=== PATIENT | female | born 1965 | race Caucasian/White ===

== ENCOUNTER 2017-03-25 10:45 | Emergency (ER) | payer BC ==
[~2017-03-25] VITALS: Ht 157.5 cm; Wt 89.0 kg
[2017-03-25 11:08] VITALS: Ht 157.5 cm; Wt 89.0 kg
[2017-03-25] MEDS ORDERED: LORAZEPAM 2 MG INJ IV ONE (11:30)
--- NOTE | 2017-03-25 12:23 | RADRPT ---
PROCEDURE: CT brain without contrast CLINICAL INDICATION: Headache, dizziness TECHNIQUE: CT of the brain without contrast was performed on a multidetector CT scanner, with multi planar reformats. One or more of the following dose reduction techniques were used: Automated expos ure control, adjustment in mA and / or kV according to patient size, use of iterative reconstructive technique. CTDIvol = 44 mGy; DLP = 630 mGy-cm. COMPARISON: None available FINDINGS: There are patient motion related artifacts mildly limiting evaluation. No acute intracranial hemorr elizabeth is identified. No extra-axial fluid collection is seen. There is no mass effect. No midline shift is identified. Ventricles and sulci are within normal limits for size and configuration. The density of the visualized brain is unremarkable. Visualized perry-white junctions are preserved. Calvarium and skull base are intact. Mastoid air cells and imaged paranasal sinuses grossly clear. IMPRESSION: Mildly limited evaluation due to motion, without acute intracranial pathology identified. RPTAT: VV .Gavino Gold MD, MD Date Time Electronically viewed and signed by .Gavino Gold MD, on 03/25/2017 12:23 .O/
[2017-03-25] MEDS ORDERED: ALPR0.5T PO (12:50)
[2017-03-25 12:56] VITALS: BP 121/92; PULSE 89; RESP 20
--- NOTE | 2017-03-25 12:56 | ERD ---
ER Documentation Chief Complaint Date/Time DATE: 03/25/17 TIME: 12:54 Chief Complaint emotionally upset due family issues, hyperventilating HPI This is a 51-year-old female who just received news that her boyfriend was found this morning. She was found in her car by her friends and coworkers emotionally upset crying and hyperventilating. Patient is complaining of tremors and numbness to her whole body. The patient is actively hyperventilating and very upset. She is also complaining of a diffuse dull headache. She is also had 2 episodes of nausea and vomiting. Patient states she has had the exact same presentation before in the past with excessive stress. She has no chest pain shortness of breath no focal neurological complaints. ROS All systems reviewed and are negative except as per history of present illness. Medications Home Meds Active Scripts Alprazolam* (Xanax*) 0.5 Mg Tab, 0.5 MG PO Q8H Y for ANXIETY, #20 TAB Prov:OSCAR CORLEY DO 03/25/17 PMhx/Soc History of Surgery: Yes ( and leg surgery) Anesthesia Reaction: No Hx Neurological Disorder: No Hx Respiratory Disorders: No Hx Cardiac Disorders: Yes (hypertension) Hx Psychiatric Problems: Yes (anxiety) Hx Miscellaneous Medical Probl: Yes (diabetes) Hx Alcohol Use: No Hx Substance Use: No Hx Tobacco Use: No Smoking Status: Never smoker FmHx Family History: No coronary disease Physical Exam Vitals Vital Signs Date Time Temp Pulse Resp B/P Pulse Ox O2 Delivery O2 Flow Rate FiO2 03/25/17 11:08 98.1 89 20 158/100 99 Physical Exam Const: Well-developed, well-nourished Head: Atraumatic, normocephalic Eyes: Normal Conjunctiva, PERRLA, EOMI, normal sclera, no nystagmus ENT: Normal External Ears, Nose and Mouth, moist mucus membranes. Neck: Full range of motion. No meningismus, no lymphadenopathy. Resp: Clear to auscultation bilaterally, no wheezing, rhonchi, rales Cardio: Regular rate and rhythm, no murmurs, S1 S2 present Abd: Soft, non tender x 4, non distended. Normal bowel sounds, no guarding or rebound, no pulsitile abdominal masses or bruits Skin: No petechiae or rashes, no ecchymosis , no maculopapular rash Back: No midline or flank tenderness Ext: No cyanosis, or edema, FROM x 4, normal inspection, neurovascularly intact x 4 Neur: Awake and alert, STR 5/5 x 4, sensation intact x 4, no focal findings, cerebellum intact, tremors to hands Psych: Crying anxious, hyperventilating Results 24 hrs Current Medications Medications (Trade) Dose Ordered Sig/Rosanna Route PRN Reason Start Time Stop Time Status Last Admin Dose Admin Lorazepam (Ativan) 1 mg ONCE ONCE IV 03/25/17 11:30 03/25/17 11:31 DC 03/25/17 11:14 Procedures/MDM PROCEDURE: CT brain without contrast CLINICAL INDICATION: Headache, dizziness TECHNIQUE: CT of the brain without contrast was performed on a multidetector CT scanner, with multiplanar reformats. One or more of the following dose reduction techniques were used: Automated exposure control, adjustment in mA and / or kV according to patient size, use of iterative reconstructive technique. CTDIvol = 44 mGy; DLP = 630 mGy-cm. COMPARISON: None available FINDINGS: There are patient motion related artifacts mildly limiting evaluation. No acute intracranial hemorrhage is identified. No extra-axial fluid collection is seen. There is no mass effect. No midline shift is identified. Ventricles and sulci are within normal limits for size and configuration. The density of the visualized brain is unremarkable. Visualized perry-white junctions are preserved. Calvarium and skull base are intact. Mastoid air cells and imaged paranasal sinuses grossly clear. IMPRESSION: Mildly limited evaluation due to motion, without acute intracranial pathology identified. RPTAT: VV .Gavino Gold MD, MD Date Time Electronically viewed and signed by .Gavino Gold MD, on 03/25/2017 12:23 .O/ CC: OSCAR CORLEY DO Patient was given Ativan is now much more calm. Her symptoms are consistent with an anxiety reaction due to the bad news she received this morning. No intracranial pathology noted Departure Diagnosis: Primary Impression: Anxiety as acute reaction to exceptional stress Condition: Stable Patient Instructions: Anxiety Reaction OSCAR CORLEY DO Mar 25, 2017 12:56
== END 2017-03-25 13:22 | disposition home or self-care (01) ==
LOC: E/R 10:45
DX: F41.1 Generalized anxiety disorder (principal); I10 Essential (primary) hypertension; E11.9 Type 2 diabetes mellitus without complications
CPT/HCPCS: 70450; J2060; 96374

== ENCOUNTER 2019-01-26 12:02 | Day surgery (SDC) | payer BC ==
[~2019-01-26] VITALS: Ht 162.6 cm; Wt 92.6 kg
[~2019-01-26 12:02] MED LIST: ALPR0.5T PO
[2019-01-26 15:00] VITALS: BP 167/88; PULSE 89; RESP 19
[2019-01-26] MEDS ORDERED: ASPIRIN (15:23)
[2019-01-26] MEDS ORDERED: januvia (15:23)
[2019-01-26] MEDS ORDERED: METFORMIN (15:23)
--- NOTE | 2019-01-26 16:18 | PREAC ---
Date/Time of Note Date/Time of Note DATE: 01/26/19 TIME: 16:15 Anesthesia Eval and Record Evaluation Time Pre-Procedure Interview DATE: 01/26/19 TIME: 16:15 Age 53 Sex female NPO: 8 hrs Preoperative diagnosis reflux and screening for colon cancer Planned procedure EGD, colonoscopy Past Medical History Past Medical History: Includes Cardio: HTN, Dyslipidemia Endo: Diabetes Musculoskeletal: Osteoarthritis Surgery & Anesthesia Issues No known issue Meds Anticoagulation: No Beta James within 24 hr: No Reason Beta James not given: Pt. not on B-James Active Scripts Alprazolam* (Xanax*) 0.5 Mg Tab, 0.5 MG PO Q8H PRN for ANXIETY, #20 TAB Prov:OSCAR CORLEY DO 03/25/17 Reported Medications [Aspirin] No Conflict Check 01/26/19 [Metformin] No Conflict Check 01/26/19 [januvia] No Conflict Check 01/26/19 Meds reviewed: Yes Allergies Coded Allergies: No Known Allergy (Unverified , 01/26/19) Allergies Reviewed: Yes Labs/Studies Labs Reviewed: Reviewed by anesthesiologist test: Negative Pre-procedure Exam Last vitals Vital Signs Date Temp Pulse Resp B/P (MAP) Pulse Ox O2 O2 Flow FiO2 Time Delivery Rate 01/26/19 98.4 89 19 167/88 97 Room Air 15:00 (114) Airway: Adequate mouth opening, Adequate thyromental dist Mallampati: Mallampati II Teeth: Normal Lung: Normal Heart: Normal ASA Physical Status ASA physical status: 3 Emergency: None Planned Anesthetic General/MAC: Mask Planned Pain Management Parenteral pain med Pre-operative Attestations Prior to commencing anesthesia and surgery, the patient was re-evaluated, there was verification of: *The patient's identity *The results of appropriate recent lab work and preoperative vital signs *The above evaluation not changing prior to induction *Anesthetic plan, risk benefits, alternative and complications discussed with patient/family; questions answered; patient/family understands, accepts and wishes to proceed. Pack Master used JESÚS LIN MD January 26, 2019 16:18
[2019-01-26] MEDS ORDERED: DEXTROSE 50% 50 ML SYRINGE IV PRN ×2 (16:30)
[2019-01-26] MEDS ORDERED: GLUCOSE GEL 15 GRAM TUBE PO PRN ×2 (16:30)
[2019-01-26] MEDS ORDERED: GLUCAGON 1 MG INJ IM PRN (16:30)
[2019-01-26] MEDS ORDERED: ONDANSETRON 4 MG INJ IV PRN (16:30)
[2019-01-26] MEDS ORDERED: GLUCOSE GEL 15 GRAM TUBE BUCCAL PRN (16:30)
[2019-01-26] MEDS ORDERED: INSULIN ASPART [NOVOLOG] 3 ML PEN SC ONE (16:30)
[2019-01-26] MEDS ORDERED: PROPOFOL 20 ML ONE ×2 (16:40→16:42)
[2019-01-26] MEDS ORDERED: LIDOCAINE 2% (SDV) 5 ML INJ ONE (16:40)
--- NOTE | 2019-01-26 17:41 | PAC ---
Date/Time of Note Date/Time of Note DATE: 01/26/19 TIME: 17:41 Post-Anesthesia Notes Post-Anesthesia Note Last documented vital signs Vital Signs Date Temp Pulse Resp B/P (MAP) Pulse Ox O2 O2 Flow FiO2 Time Delivery Rate 01/26/19 98.4 89 19 167/88 97 Room Air 15:00 (114) Activity: WNL Respiratory function: WNL Cardiovascular function: WNL Mental status: Baseline Pain reasonably controlled: Yes Hydration appropriate: Yes Nausea/Vomiting absent: Yes Comments BP: 117/64 HR: 77 RR: 15 T: 98 SaO2: 99% JESÚS LIN MD January 26, 2019 17:41
[2019-01-26] MEDS ORDERED: LABETALOL HCL 20MG INJ ONE (18:14)
[2019-01-26] MEDS ORDERED: hydrALAzine 20 MG INJ ONE (19:00)
== END 2019-01-26 19:52 | disposition home or self-care (01) ==
LOC: GIL 12:02
PROVIDERS: ATTEND Internal Medicine Gastroenterology
DX: Z12.11 Encounter for screening for malignant neoplasm of colon (principal); K29.50 Unspecified chronic gastritis without bleeding; D12.8 Benign neoplasm of rectum; K64.8 Other hemorrhoids; I85.10 Secondary esophageal varices without bleeding; K20.9 Esophagitis, unspecified; E11.9 Type 2 diabetes mellitus without complications; I10 Essential (primary) hypertension; Z79.84 Long term (current) use of oral hypoglycemic drugs
CPT/HCPCS: 43239; 45380; 82962; 84703; J0360; J1815; Z7610; 88305; 88312